=== PATIENT | female | born 1925 | race Caucasian/White ===

== ENCOUNTER 2017-07-25 12:56 | Outpatient (CLI) | payer MEDICARE | END 2017-07-25 12:57 | disposition home or self-care (01) | LOC: BICCT 12:56 | PROVIDERS: ATTEND Nurse Practitioner Family | DX: K29.70 Gastritis, unspecified, without bleeding (principal); K57.92 Diverticulitis of intestine, part unspecified, without perforation or abscess without bleeding; K63.89 Other specified diseases of intestine; Z91.09 Other allergy status, other than to drugs and biological substances | CPT/HCPCS: 74176 ==

== ENCOUNTER 2017-08-21 06:31 | Day surgery (SDC) | payer MEDICARE ==
[2017-08-20 15:50] VITALS: BMI 16.7
--- NOTE | 2017-08-20 22:25 | HP ---
SHORT STAY HISTORY AND PHYSICAL DATE OF ADMISSION: 08/21/2017 HISTORY OF PRESENT ILLNESS: This is an 89-year-old female with abdominal pain, poor appeti te, loss of weight. She had been having symptoms over the last 3 months. She has the symptom off an d on before, but the symptoms are not persistent. She had lost about 40 pounds over the last 2 month s. The patient's symptoms are difficult to explain and she does have history of depression. It is n ot very clear whether she has some ongoing pathology to explain the weight loss or she is not eating well because of depression. The patient comes for an EGD because of abdominal pain, nausea, vomiting , and weight loss. ALLERGIES: IODINE. SOCIAL HISTORY: The patient does not smoke or drink alcohol. MEDICAL ILLNESSES: 1. Hypertension. 2. Hypothyroidism. 3. Depression and anxiety. 4. Hyperlipidemia. 5. Irritable bowel syndrome. 6. Hysterectomy. 7. Cataracts. PHYSICAL EXAMINATION: GENERAL: Revealed a fragile-looking, elderly white female, who appears very comfortable. VITAL SIGNS: Her weight is 103 pounds, pulse is 73, blood pressure 110/70. HEENT: Conjunctivae are clear. CARDIOVASCULAR SYSTEM: First and second heart sounds normal. LUNGS: Clear to auscultation. ABDOMEN: Soft to palpate. No organomegaly. Abdomen is mildly tender across the upper abdomen. The re is no rebound or guarding. ADMITTING DIAGNOSES: Abdominal pain, nausea, vomiting, and weight loss. PLAN: EGD.
[2017-08-21] MEDS ORDERED: Glycopyrrolate 0.2 MG/ML 5 ML SYRINGE ONE (08:20)
--- NOTE | 2017-08-21 13:14 | OP ---
DATE OF PROCEDURE: 08/21/2017 SURGEON: Dr. Zulma Gonzalez OPERATIVE PROCEDURE: Esophagogastroduodenoscopy. PREOPERATIVE DIAGNOSIS: An 89-year-old female with vague abdominal pain, nausea and vomiting, weight loss. The patient is undergoing esophagogastroduodenoscopy. POSTOPERATIVE DIAGNOSES: 1. Small hiatus hernia. 2. Nonbleeding gastric arteriovenous malformation. 3. Otherwise, normal exam. PROCEDURE IN DETAIL: The patient was placed on her left lateral position and was given sedation by the Anesthesia Department. A Pentax video gastroscope under direct vision was passed down the oropharynx, past the gastroesophageal junction, into the stomach and subsequently into the descending duodenum. The esophageal mucosa appeared normal. The GE junction, no pathology seen. The patient had a hiatus hernia. Retroflexion failed to show any lesions in the fundus or cardia. The gastric body, no pathology seen. Over the upper gastric body, the patient was found to have nonbleeding AVM. The incisura angularis, gastric antrum, no pathology seen. The duodenal bulb and descending duodenum, no pathology. The stomach was decompressed and the scope removed. DISCHARGE PLANNING: This is an 89-year-old female who came in for an EGD because of abdominal pain, nausea and vomiting, anorexia and weight loss. The patient had EGD. The EGD was basically negative. Going over the [facility], this patient has seen Dr.Charles Llanos about 3-4 years ago. She had a colonoscopy, the colonoscopy was negative except for diffuse diverticulosis. DISCHARGE RECOMMENDATIONS: . If her symptoms persist, I will plan for CT angiogram to rule out mesenteric ischemia. [facility]
[2017-08-21] MEDS ORDERED: PROPOFOL 200 MG/20 ML VIAL ONE (16:31)
[2017-08-21] MEDS ORDERED: Lidocaine 1% PF 5 ML VIAL ONE (16:31)
== END 2017-08-21 10:40 | disposition home or self-care (01) ==
LOC: SDC 06:31
PROVIDERS: ATTEND Internal Medicine Gastroenterology
PROC: 0DJ08ZZ Inspection of Upper Intestinal Tract, Via Natural or Artificial Opening Endoscopic (ICD-10-PCS; principal; 2017-08-21)
DX: Q27.33 Arteriovenous malformation of digestive system vessel (principal); K44.9 Diaphragmatic hernia without obstruction or gangrene; R63.0 Anorexia; R63.4 Abnormal weight loss; K57.30 Diverticulosis of large intestine without perforation or abscess without bleeding; I10 Essential (primary) hypertension; E03.9 Hypothyroidism, unspecified; F41.9 Anxiety disorder, unspecified; F32.9 Major depressive disorder, single episode, unspecified; E78.5 Hyperlipidemia, unspecified; K58.9 Irritable bowel syndrome, unspecified; Z68.1 Body mass index [BMI] 19.9 or less, adult; Z79.82 Long term (current) use of aspirin; Z79.899 Other long term (current) drug therapy; Z91.013 Allergy to seafood; Z91.041 Radiographic dye allergy status; Z88.2 Allergy status to sulfonamides; Z88.8 Allergy status to other drugs, medicaments and biological substances; Z94.7 Corneal transplant status; Z90.710 Acquired absence of both cervix and uterus; Z98.890 Other specified postprocedural states
CPT/HCPCS: J2001; J2704

== ENCOUNTER 2017-08-22 10:45 | Inpatient (IN) | payer MEDICARE ==
[2017-08-22 11:29] LABS: #Basophils 0.1 thou/uL (0.0-0.2); #Monocytes 1.4 thou/uL (0.11-0.59); #Neutrophils 9.1 thou/uL (1.40-6.50); %Basophils 0.5 % (0.0-1.0); %Eosinophils 0.4 % (0.0-10.0); %Lymphocytes 15.8 % (21.0-51.0); %Monocytes 11.4 % (0.0-10.0); Hemoglobin 8.8 g/dL (12.0-16.0); Mean Corpuscular HGB CONC 31.4 g/dL (32.0-36.0); Mean Corpuscular Hemoglobin 26.5 pg (27.0-31.0); Mean Corpuscular Volume 84.2 fl (81.0-99.0); Platelet Count 519 thou/uL (130-400); RBC Distribution Width 13.4 % (11.5-14.5); Red Blood Cell (RBC) Count 3.32 mill/uL (4.20-5.40); White Blood Cell (WBC) Count 12.6 thou/uL (4.8-10.8)
[2017-08-22 11:51] LABS: ALT (SGPT) Less than 7 U/L (8-55); AST (SGOT) 10 U/L (5-34); Alkaline Phosphatase 52 U/L (40-150); Anion Gap 9 mmol/L (10-20); BUN (Urea Nitrogen) 19 mg/dL (9.8-20.1); Bilirubin, Total 0.4 mg/dL (0.2-1.2); Calc. Creatinine Clearance 0 mL/min (70-130); Calcium 8.5 mg/dL (7.8-10.44); Carbon Dioxide 27 mmol/L (23-31); Chloride 102 mmol/L (98-107); Estimated GFR-MDRD 48; Globulin 3.9 g/dL (2.4-3.5); Glucose 140 mg/dL (83-110); Magnesium 1.8 mg/dL (1.6-2.6); Potassium 3.2 mmol/L (3.5-5.1); Protein, Total 6.9 g/dL (6.0-8.3); Sodium 135 mmol/L (136-145)
[2017-08-22 11:55] LABS: CKMB 0.5 ng/mL (0-6.6); Troponin I Less than 0.010 ng/mL (< 0.028)
--- NOTE | 2017-08-22 11:56 | CT ---
NONCONTRAST HEAD CT: Date: 08/22/17 HISTORY: Syncope. COMPARISON: None. TECHNIQUE: A noncontrast head CT is performed from the skull base to the skull vertex. FINDINGS: No parenchymal hemorrhage or extra-axial hematoma. No midline shift. Basilar cisterns are patent. Age -appropriate atrophy. Cortical perry-white matter differentiation is preserved. Ventricles and sulci a re patent and symmetric. White matter hypodensities due to chronic small vessel ischemic changes are noted. Hypoattenuation of the anterior limb of both internal capsules is also identified. Calvarium i s intact. Adequate aeration of the sinuses and mastoid air cells. Cavernous carotid atherosclerosis i s noted. IMPRESSION: 1. Age-appropriate atrophy. 2. Chronic small vessel ischemic changes of white matter. POS: OFF
[2017-08-22] MEDS ORDERED: Ondansetron ODT 4 MG TAB SL PRN (13:57)
[2017-08-22] MEDS ORDERED: Acetaminophen 325 MG TAB PO PRN (13:57)
[2017-08-22] MEDS ORDERED: Ondansetron HCl/PF 4 MG/2 ML Vial IVP PRN (13:57)
[2017-08-22] MEDS ORDERED: Guaifenesin DM 100-10/5 ML UDCUP PO PRN (15:19)
--- NOTE | 2017-08-22 15:49 | HP ---
REASON FOR ADMISSION: Transient ischemic attack with left lower extremity weakness. HISTORY OF PRESENT ILLNESS: The patient gives history of waking up with left leg feeling numb. She could not move her left lower extremity without the help of her hands pulling it up, this happened around 8 in the morning. She was supposed to meet her children at a restaurant for breakfast as she did not turn up, they called her and her daughter went to pick her up. She in fact was leaning onto her when she was trying to get into the car, but they managed to make her eat breakfast. As this was not getting better, the patient was finally brought to emergency room. The patient states she normally has diarrhea around 2-3 times a day; yesterday, she had nearly 6-7 times and got wiped out from it. She also had upper endoscopy done yesterday for which she was n.p.o. She has been getting workup for her diarrhea, which has been chronically there from last [address] Gonzalez's office. She also mentions she has hemorrhoids and has been bleeding due to it and also has issues sitting up and has to use special positions for the hemorrhoids not to hurt her. This has led to pinching up nerves with tingling and numbness in the lower extremities as well. PAST MEDICAL/SURGICAL HISTORY: Has had upper endoscopy done yesterday which shows essentially within normal limits, prior colonoscopy done 4 years ago. The patient knows she is borderline anemic, hysterectomy, has had a stress test done 5 years back. She also claims that she has some valve issue which will not kill her and follows up with Dr. Sheets for the same, dyslipidemia, and diverticulosis. CURRENT MEDICATIONS: The patient is on duloxetine 20 mg daily, Crestor 20 mg p.o. at bedtime, Cardizem-CD 180 mg p.o. daily, Bentyl p.r.n. twice daily, aspirin 81 mg p.o. daily, CoQ10 100 mg p.o. daily, Superior Thyroid 15 mg p.o. daily, Protonix 40 mg p.o. daily. ALLERGIES: IODINE, SULFA, OMNICEF. PERSONAL HISTORY: Does not abuse alcohol or drugs. No history of smoking. She lives alone. FAMILY HISTORY: Mother at the age of 92 from old age. Father of aneurysm and its complications at the age of 59 years. REVIEW OF SYSTEMS: The following complete review of systems was negative, unless otherwise mentioned in the HPI or below: Constitutional: Weight loss or gain, ability to conduct usual activities. Skin: Rash, itching. Eyes: Double vision, pain. ENT/Mouth: Nose bleeding, neck stiffness, pain, tenderness. Cardiovascular: Palpitations, dyspnea on exertion, orthopnea. Respiratory: Shortness of breath, wheezing, cough, hemoptysis, fever or night sweats. Gastrointestinal: Poor appetite, abdominal pain, heartburn, nausea, vomiting, constipation, or diarrhea. Genitourinary: Urgency, frequency, dysuria, nocturia. Musculoskeletal: Pain, swelling. Neurologic/Psychiatric: Anxiety, depression. Allergy/Immunologic: Skin rash, bleeding tendency. PHYSICAL EXAMINATION: GENERAL: The patient is an 89-year-old female who is currently not in any acute distress. VITAL SIGNS: Blood pressure 100/58 on arrival, pulse 93 per minute, respiratory rate 16 per minute, temperature 97.8 degrees Fahrenheit, saturating 96% on room air. NECK: Supple, no elevated JVD. HEENT: Eyes: Extraocular muscles intact. Pupils reacting to light. Oral cavity: Mucous membranes are dry. No exudates or congestion. CARDIOVASCULAR: S1, S2 heard. Regular rhythm. RESPIRATORY: Air entry 1+ bilaterally. No rales or rhonchi. ABDOMEN: Soft, bowel sounds heard. No tenderness, rigidity or guarding. EXTREMITIES: No peripheral edema or calf tenderness. VASCULAR SYSTEM: Peripheral pulses 1+ bilateral. No ischemic ulcerations or gangrene. CENTRAL NERVOUS SYSTEM: The patient is alert, awake, and oriented well. Cranial nerves are grossly intact. Motor system strength is 5/5 in right upper and lower extremity and left upper extremity. It is 4-5/5 in left lower extremity with a slight tinge of weakness. Please note patient is a right- handed person. Reflexes are 2+. Babinski is downgoing. Gait was not tested. PSYCHIATRIC: The patient's mood is a bit anxious, otherwise no hallucinations or delusions. LABORATORY AND X-RAY FINDINGS: EKG done shows normal sinus rhythm at 88 beats per minute. No signs of LVH seen. White count of 12, H&H 8.8 and 27.9, platelet count 519, MCV is 84 with 72% neutrophils. Potassium 3.2, serum bicarbonate 27, BUN 19, creatinine 1.0, glucose 140. AST, ALT, and alkaline phosphatase within normal limits. Albumin is 3.0, globulin is 3.9, total protein is 6.9. First set of cardiac enzymes are negative. CT brain shows age appropriate atrophy, chronic small vessel ischemic change, no acute infarct or bleed. CLINICAL IMPRESSION AND PLAN: The patient will be under observation for transient ischemic attack with left lower extremity weakness, which is currently resolving. She also appears to be dehydrated. She has chronic diarrhea and had worsening of the same and was also n.p.o. for EGD in the morning yesterday. She will be gently hydrated with normal saline at 60 mL per hour. We will also replace her potassium. I will continue her aspirin, Cardizem-CD 10, CoQ10, Crestor, Protonix, Superior thyroid as before. If patient were to have a CVA on imaging, then she will be switched to Plavix. We will obtain an echo with 2D Doppler and ultrasound carotids as well. A complete stroke workup will be done as well. We will consult Neurology if there are signs of CVA on the MRI. I have discussed code status with the patient and she would like to be a DNR. Her daughter was also a witness to this at bedside. [facility]
--- NOTE | 2017-08-22 16:25 | ULT ---
DUPLEX SONOGRAM CAROTID BILATERAL: 08/22/17 HISTORY: TIA. Vascular disease. FINDINGS: RIGHT: Mild plaque is present. Color and spectral doppler evaluation, peak systolic velocity of 113 cm/s, an d IC to CC ratio of 1.2 suggests no hemodynamically significant stenosis within the extracranial righ t ICA. Antegrade flow is present within the vertebral artery. LEFT: Scattered plaque is apparent. Color and spectral doppler evaluation, peak systolic velocity of 114 cm /s and IC to CC ratio of 0.9 suggests no hemodynamically significant stenosis within the extracranial left ICA. Antegrade flow is present within the vertebral artery. IMPRESSION: Atherosclerosis. There is no sonographic evidence of significant extracranial ICA stenosis. POS: [facility]
--- NOTE | 2017-08-22 16:56 | MRI ---
MRI OF BRAIN WITHOUT CONTRAST: 08/22/17 HISTORY: TIA. FINDINGS: Correlation is made with the CT scan from earlier today. There is a 1 cm focal area of restricted diffusion in the medial aspect of the right precentral gyrus consistent with acute infarction. Multiple foci of T2 prolongation is seen in the periventricular white matter consistent with chronic small vessel ischemic disease. The ventricular size is appropriate and the basilar cisterns patent. T he visualized paranasal sinus and mastoid air cells are well aerated. IMPRESSION: Small acute infarction in the medial aspect of the right precentral gyrus. POS: [facility]
[2017-08-22] MEDS: Potassium Chloride 20 MEQ TAB PO SCH ×2 (16:58→21:19)
[2017-08-22] MEDS: Sodium Chloride 0.9% 1,000 ML IV SCH (17:04)
[2017-08-22] MEDS: Rosuvastatin 20 MG TAB PO SCH (20:34)
[2017-08-22] MEDS: Acetaminophen 325 MG TAB PO PRN (20:34)
[2017-08-22] MEDS: Famotidine 20 MG TAB PO SCH (20:35)
[2017-08-23] MEDS: Acetaminophen 325 MG TAB PO PRN ×2 (00:12→20:26)
[2017-08-23] MEDS: metroNIDAZOLE 500 MG in Premix Bag 1 BAG IVPB SCH ×3 (01:16→18:23)
[2017-08-23] MEDS: Potassium Chloride 20 MEQ TAB PO SCH (03:52)
[2017-08-23 05:31] LABS: #Lymphocytes 1.6 thou/uL (1.20-3.40); #Monocytes 1.7 thou/uL (0.11-0.59); #Neutrophils 8.4 thou/uL (1.40-6.50); %Basophils 0.2 % (0.0-1.0); %Eosinophils 0.3 % (0.0-10.0); %Monocytes 14.2 % (0.0-10.0); %Neutrophils 71.4 % (42.0-75.0); Mean Corpuscular HGB CONC 30.9 g/dL (32.0-36.0); Mean Corpuscular Hemoglobin 26.1 pg (27.0-31.0); Mean Corpuscular Volume 84.6 fl (81.0-99.0); Mean Platelet Volume 6.2 fL (7.4-10.4); Platelet Count 498 thou/uL (130-400); RBC Distribution Width 13.4 % (11.5-14.5); Red Blood Cell (RBC) Count 3.04 mill/uL (4.20-5.40); White Blood Cell (WBC) Count 11.8 thou/uL (4.8-10.8)
[2017-08-23 06:24] LABS: Anion Gap 11 mmol/L (10-20); BUN (Urea Nitrogen) 14 mg/dL (9.8-20.1); Calc. Creatinine Clearance 36 mL/min (70-130); Carbon Dioxide 20 mmol/L (23-31); Cardiac Risk 2.5 (Less than 4.5); Chloride 108 mmol/L (98-107); Cholesterol 70 mg/dl (< 200 Desired); Estimated GFR-MDRD 70; Glucose 104 mg/dL (83-110); HDL Cholesterol 28 mg/dL (>60 Neg Risk); LDL Cholesterol, Calculated 31 mg/dL; Potassium 4.6 mmol/L (3.5-5.1); Sodium 134 mmol/L (136-145); Triglycerides 56 mg/dL (Less than 150)
[2017-08-23] MEDS: Aspirin 81 mg Enteric Coated Tablet PO SCH (08:31)
[2017-08-23] MEDS: Enoxaparin Sodium 40 MG/0.4 ML SYRINGE SC SCH (08:33)
[2017-08-23] MEDS: Diphenoxylate HCl/Atropine Tablet PO SCH (08:33)
[2017-08-23] MEDS: Famotidine 20 MG TAB PO SCH (08:34)
[2017-08-23] MEDS: Thyroid 30 MG TAB PO SCH (08:35)
[2017-08-23] MEDS: Ubidecarenone 50 MG CAP PO SCH (08:38)
--- NOTE | 2017-08-23 11:49 | PDOC.PN ---
- Subjective Encounter Start Date: 08/23/17 Encounter Start Time: 09:00 Subjective: awake, no new complaints -: still has left leg parasthesias and feels weak in Left leg - Objective Resuscitation Status: Resuscitation Status DNR:Do Not Resuscitate MAR Reviewed: Yes Vital Signs & Weight: Vital Signs (12 hours) Temp Pulse Pulse Pulse Resp BP BP 08/23/17 09:30 92 92 121/55 L 127/58 L 08/23/17 08:20 98.7 F 77 18 08/23/17 07:48 98.7 F 77 18 08/23/17 07:33 83 123/56 L 127/60 08/23/17 03:28 98.2 F 80 20 BP Pulse Ox 08/23/17 09:30 08/23/17 08:20 08/23/17 07:48 103/68 94 L 08/23/17 07:33 08/23/17 03:28 100/54 L 93 L Weight Admit Weight 103 lb 1.6 oz Weight 103 lb 1.6 oz I&O: 08/22/17 08/23/17 08/24/17 06:59 06:59 06:59 Intake Total 790 Balance 790 Result Diagrams: 08/23/17 04:49 08/23/17 04:49 Phys Exam - Physical Examination HEENT: PERRLA, moist MMs Neck: no JVD, supple Respiratory: no wheezing, no rales Cardiovascular: RRR, no significant murmur Gastrointestinal: soft, non-tender, positive bowel sounds Musculoskeletal: no edema, pulses present Neurological: moves all 4 limbs Psychiatric: normal affect, A&O x 3 Dx/Plan (1) Acute CVA (cerebrovascular accident) Code(s): I63.9 - CEREBRAL INFARCTION, UNSPECIFIED Status: Acute Comment: with left sided weakness (2) HTN (hypertension) Code(s): I10 - ESSENTIAL (PRIMARY) HYPERTENSION Status: Chronic Qualifiers: Hypertension type: essential hypertension Qualified Code(s): I10 - Essential (primary) hypertension (3) Anemia Code(s): D64.9 - ANEMIA, UNSPECIFIED Status: Chronic Qualifiers: Anemia type: unspecified type Qualified Code(s): D64.9 - Anemia, unspecified (4) Chronic diarrhea Code(s): K52.9 - NONINFECTIVE GASTROENTERITIS AND COLITIS, UNSPECIFIED Status : Chronic (5) Dyslipidemia Code(s): E78.5 - HYPERLIPIDEMIA, UNSPECIFIED Status: Chronic (6) Hypothyroidism Code(s): E03.9 - HYPOTHYROIDISM, UNSPECIFIED Status: Chronic Qualifiers: Hypothyroidism type: unspecified Qualified Code(s): E03.9 - Hypothyroidism , unspecified - Plan MRI shows ac cva in left precentral gyrus -: neuro consult, change status to inpt -: stool w/u so far is -ve for inf causes -: her diarrheal episodes have worsoned overnight, GI consult -: to amb as tolerated * . Review of Systems - Medications/Allergies Allergies/Adverse Reactions: Allergies Allergy/AdvReac Type Severity Reaction Status Date / Time iodine Allergy Intermediate Verified 08/20/17 15:51 shellfish derived Allergy Intermediate Verified 08/20/17 15:51 simvastatin Allergy Mild Verified 08/20/17 15:51 sulfamethoxazole Allergy Mild Verified 08/20/17 15:51 [From Bactrim] trimethoprim [From Bactrim] Allergy Mild Verified 08/20/17 15:51 Medications: Current Medications Acetaminophen (Tylenol) 650 mg PO Q4H PRN PRN Reason: Headache/Fever or Pain Last Admin: 08/23/17 00:12 Dose: 650 mg Aspirin (Ecotrin) 81 mg PO DAILY [facility] Last Admin: 08/23/17 08:31 Dose: 81 mg Coenzyme Q10 (Coenzyme Q10) 100 mg PO DAILY [facility] Last Admin: 08/23/17 08:38 Dose: 100 mg Diltiazem HCl (Cardizem Cd) 180 mg PO DAILY [facility] Last Admin: 08/23/17 08:32 Dose: 180 mg Diphenoxylate HCl/Atropine (Lomotil) 1 tab PO DAILY [facility] Last Admin: 08/23/17 08:33 Dose: 1 tab Duloxetine HCl (Cymbalta) 20 mg PO HS [facility] Last Admin: 08/22/17 20:35 Dose: 20 mg Enoxaparin Sodium (Lovenox) 40 mg SC 0900 [facility] Last Admin: 08/23/17 08:33 Dose: 40 mg Guaifenesin/Dextromethorphan (Robitussin Dm) 15 ml PO Q4H PRN PRN Reason: Cough Sodium Chloride (Normal Saline 0.9%) 1,000 mls @ 60 mls/hr IV .[id number] [facility] Last Admin: 08/22/17 17:04 Dose: 1,000 mls Ciprofloxacin/Dextrose 400 mg/ (Device) 200 mls @ 200 mls/hr IVPB 1200,2359 [facility] Last Admin: 08/23/17 00:11 Dose: 200 mls Metronidazole 500 mg/ Device 100 mls @ 100 mls/hr IVPB 0100,0900,1700 [facility] Last Admin: 08/23/17 08:42 Dose: 100 mls Pantoprazole Sodium (Protonix) 40 mg PO DAILY [facility] Last Admin: 08/23/17 08:34 Dose: 40 mg Rosuvastatin Calcium (Crestor) 20 mg PO HS [facility] Last Admin: 08/22/17 20:34 Dose: 20 mg Thyroid ([place] Thyroid) 15 mg PO DAILY [facility] Last Admin: 08/23/17 08:35 Dose: 15 mg
[2017-08-23] MEDS: Sodium Chloride 0.9% 1,000 ML IV SCH (12:34)
--- NOTE | 2017-08-23 13:41 | CON ---
DATE OF CONSULTATION: 08/23/2017 CHIEF COMPLAINT: Leg weakness. HISTORY OF PRESENT ILLNESS: The patient is admitted currently for gastrointestinal symptoms and dave ent was unable to tell me how long her leg was weak, but family informs me that patient developed acu te left leg weakness and patient is mainly complaining of left calf muscle pain and according to the medical chart as well she had left lower extremity weakness starting at 8:00 a.m. and at this time sh e had resolved and she was brought to the ER on 250 and she has been having diarrhea for the last sev eral weeks and she has been seen on various medications for this chronic diarrhea and patient also webb s hemorrhoids and is bleeding. PREVIOUS MEDICAL HISTORY: Gastrointestinal problems with longstanding diarrhea and dyslipidemia, div erticulosis, anemia. PREVIOUS SURGICAL HISTORY: Hysterectomy and no other surgeries. She did have endoscopies and colono scopies in the past. HOME MEDICATIONS: Include duloxetine, Crestor, Cardizem, Bentyl, aspirin, Coq10, Redig thyroid and Protonix. ALLERGIES: She is allergic to IODINE, SULFA, and OMNICEF. 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 FAMILY HISTORY: Positive for stroke in her mother. Father had aneurysm. REVIEW OF SYSTEMS: PULMONARY: Normal. CARDIAC: Normal. GASTROINTESTINAL: Positive for longstand ing diarrhea. GENITOURINARY: Normal. NEUROLOGICAL: Positive for left lower extremity weakness. O PHTHALMOLOGICAL: Normal. DERMATOLOGICAL: Normal. LABORATORY DATA AND IMAGING DATA: White count 11.8, hemoglobin 8, hematocrit 25.7, platelets 498. S odium 134, potassium 4.6, chloride 108, bicarbonate 20, anion gap 11, BUN 14, creatinine 0.78, trigly cerides 56, cholesterol 70. Imaging results, MRI scan of the brain was performed and it showed small acute infarct in the medial aspect of right precentral gyrus and carotid Dopplers, atherosclerosis. There is no sonographic evidence of extracranial ICA stenosis. PHYSICAL EXAMINATION: VITAL SIGNS: Blood pressure 131/58, temperature 100.1, pulse 92, respiratory rate 16, oxygen saturat ions 94%. GENERAL APPEARANCE: Thin built, frail lady who is in the bed. CHEST: Clear vesicular breathing. CARDIOVASCULAR: S1 and S2 heard. No murmurs. Carotids are clear. ABDOMEN: Soft, nontender, no organomegaly noted. NEUROLOGIC: Higher intellectual functions are normal. Cranial nerves II-XII normal, but she has sli ghtly decreased hearing. Normal extraocular movements. Normal fundus examination. Normal sensation of face bilaterally. Hearing is slightly decreased on the left side and tongue midline. No atrophy noted. Normal elevation of palate. MOTOR: Bulk normal, tone normal, strength 5/5 in upper extremities and lower extremity strength was also normal at 5/5. Muscle groups tested, iliopsoas, hamstrings, quadriceps, ankle dorsiflexion, rodger ntarflexion, deltoids, biceps, triceps, wrist extension/flexion, finger extension and flexion bilater ally. Deep tendon reflexes 1+ throughout in biceps, brachioradialis, knee jerks and ankle jerks bila terally. Gait not tested. SENSORY: Normal to touch, pinprick, proprioception and vibration bilaterally in upper and lower extr emities. CEREBELLAR: Normal [id number] heel to starks. Gait not tested. IMPRESSION: Patient is an 89-year-old lady with longstanding history of having gastrointestinal prob lems and diarrhea for this past year and she has been having more diarrhea recently and has been foun d to have left lower extremity weakness. Her weakness has resolved. MRI did show small ischemic dany nt in the medial aspect of right precentral gyrus which corresponds to the left lower extremity weakn ess. Clinical diagnosis is most consistent with acute CVA in the setting of likely dehydration and p oor general condition due to diarrhea. RECOMMENDATIONS: 1. Please continue with aspirin. 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 2. I will check on her echocardiogram and rest of the stroke workup. 3. Please correct her hemoglobin, so we can improve cerebral perfusion. 4. I will follow the patient with you through this hospital stay.
[2017-08-23] MEDS: Rosuvastatin 20 MG TAB PO SCH (20:26)
[2017-08-24] MEDS: metroNIDAZOLE 500 MG in Premix Bag 1 BAG IVPB SCH ×3 (00:28→16:57)
[2017-08-24] MEDS: Sodium Chloride 0.9% 1,000 ML IV SCH ×2 (01:57→09:24)
[2017-08-24] MEDS: Enoxaparin Sodium 40 MG/0.4 ML SYRINGE SC SCH (09:21)
[2017-08-24] MEDS: Ubidecarenone 50 MG CAP PO SCH (09:22)
[2017-08-24] MEDS: Thyroid 30 MG TAB PO SCH (09:22)
[2017-08-24] MEDS: Diphenoxylate HCl/Atropine Tablet PO SCH (09:23)
[2017-08-24] MEDS: Aspirin 81 mg Enteric Coated Tablet PO SCH (09:23)
--- NOTE | 2017-08-24 10:14 | PDOC.PN ---
- Subjective Encounter Start Date: 08/24/17 Encounter Start Time: 09:00 Subjective: diarrhea better overnight, slept better -: no new weakness, is amb with PT - Objective Resuscitation Status: Resuscitation Status DNR:Do Not Resuscitate MAR Reviewed: Yes Vital Signs & Weight: Vital Signs (12 hours) Temp Pulse Resp BP Pulse Ox 08/24/17 07:18 98.6 F 85 18 106/53 L 99 08/24/17 03:54 98.1 F 71 16 111/50 L 95 08/24/17 00:20 98.9 F 74 16 133/70 94 L Weight Admit Weight 103 lb 1.6 oz Weight 102 lb 9.6 oz I&O: 08/23/17 08/24/17 08/25/17 06:59 06:59 06:59 Intake Total 790 5745 Output Total 950 Balance 790 4795 Result Diagrams: 08/23/17 04:49 08/23/17 04:49 Phys Exam - Physical Examination HEENT: PERRLA, moist MMs Neck: no JVD, supple Respiratory: no wheezing, no rales Cardiovascular: RRR, no significant murmur Gastrointestinal: soft, non-tender, positive bowel sounds Musculoskeletal: no edema, pulses present Neurological: non-focal, moves all 4 limbs Psychiatric: A&O x 3 Dx/Plan (1) Acute CVA (cerebrovascular accident) Code(s): I63.9 - CEREBRAL INFARCTION, UNSPECIFIED Status: Acute Comment: with left sided weakness (2) HTN (hypertension) Code(s): I10 - ESSENTIAL (PRIMARY) HYPERTENSION Status: Chronic Qualifiers: Hypertension type: essential hypertension Qualified Code(s): I10 - Essential (primary) hypertension (3) Anemia Code(s): D64.9 - ANEMIA, UNSPECIFIED Status: Chronic Qualifiers: Anemia type: unspecified type Qualified Code(s): D64.9 - Anemia, unspecified (4) Chronic diarrhea Code(s): K52.9 - NONINFECTIVE GASTROENTERITIS AND COLITIS, UNSPECIFIED Status : Chronic (5) Dyslipidemia Code(s): E78.5 - HYPERLIPIDEMIA, UNSPECIFIED Status: Chronic (6) Hypothyroidism Code(s): E03.9 - HYPOTHYROIDISM, UNSPECIFIED Status: Chronic Qualifiers: Hypothyroidism type: unspecified Qualified Code(s): E03.9 - Hypothyroidism , unspecified - Plan was placed on cipro and flagyl last night, stool studies -ve for inf -: is on asp, statins -: to mobilize as tolerated -: dc plan in am if stable, ?rehab -: will order CTA abd to r/o mesenteric ischemia, needs premed-iodine allergy * . Review of Systems - Medications/Allergies Allergies/Adverse Reactions: Allergies Allergy/AdvReac Type Severity Reaction Status Date / Time iodine Allergy Intermediate Verified 08/20/17 15:51 shellfish derived Allergy Intermediate Verified 08/20/17 15:51 simvastatin Allergy Mild Verified 08/20/17 15:51 sulfamethoxazole Allergy Mild Verified 08/20/17 15:51 [From Bactrim] trimethoprim [From Bactrim] Allergy Mild Verified 08/20/17 15:51 Medications: Current Medications Acetaminophen (Tylenol) 650 mg PO Q4H PRN PRN Reason: Headache/Fever or Pain Last Admin: 08/23/17 20:26 Dose: 650 mg Aspirin (Ecotrin) 81 mg PO DAILY [facility] Last Admin: 08/24/17 09:23 Dose: 81 mg Coenzyme Q10 (Coenzyme Q10) 100 mg PO DAILY [facility] Last Admin: 08/24/17 09:22 Dose: 100 mg Diltiazem HCl (Cardizem Cd) 180 mg PO DAILY [facility] Last Admin: 08/24/17 09:23 Dose: 180 mg Diphenoxylate HCl/Atropine (Lomotil) 1 tab PO DAILY [facility] Last Admin: 08/24/17 09:23 Dose: 1 tab Duloxetine HCl (Cymbalta) 20 mg PO HS [facility] Last Admin: 08/23/17 20:26 Dose: 20 mg Enoxaparin Sodium (Lovenox) 40 mg SC 0900 [facility] Last Admin: 08/24/17 09:21 Dose: 40 mg Guaifenesin/Dextromethorphan (Robitussin Dm) 15 ml PO Q4H PRN PRN Reason: Cough Sodium Chloride (Normal Saline 0.9%) 1,000 mls @ 60 mls/hr IV .[id number] [facility] Last Admin: 08/24/17 09:24 Dose: 1,000 mls Ciprofloxacin/Dextrose 400 mg/ (Device) 200 mls @ 200 mls/hr IVPB 1200,2359 [facility] Last Admin: 08/24/17 00:28 Dose: 200 mls Metronidazole 500 mg/ Device 100 mls @ 100 mls/hr IVPB 0100,0900,1700 [facility] Last Admin: 08/24/17 09:23 Dose: 100 mls Pantoprazole Sodium (Protonix) 40 mg PO DAILY [facility] Last Admin: 08/24/17 09:23 Dose: 40 mg Rosuvastatin Calcium (Crestor) 20 mg PO HS [facility] Last Admin: 08/23/17 20:26 Dose: 20 mg Thyroid ([place] Thyroid) 15 mg PO DAILY [facility] Last Admin: 08/24/17 09:22 Dose: 15 mg
--- NOTE | 2017-08-24 14:04 | PRG ---
DATE OF SERVICE: 08/24/2017 CHIEF COMPLAINT: Left leg weakness. INTERVAL HISTORY: Since yesterday, the patient has been able to ambulate with help from PT. The pat iealbert reports she has some improvement in the leg weakness. LABORATORY: No new labs available yet for today. OBJECTIVE: VITAL SIGNS: The patient's blood pressure was 107/49, temperature 98.2, pulse 80, respiratory rate 1 8, oxygen saturation 96. NEUROLOGIC: Higher intellectual function is normal. Cranial nerves: Normal extraocular movements. No facial asymmetry, normal sensation of face bilaterally. Motor: Bulk, normal tone, normal streng th, 5-/5 in upper extremities bilaterally. Right lower extremity was also 5-/5, left lower extremity 4+/5 proximal and 5/5 distal. IMPRESSION: The patient with right precentral gyrus ischemic infarct with resultant left lower extre mity weakness. She is stable and doing well at this time. PLAN: I will check on her echocardiogram when available and I will follow up with you during this ho spitalization.
[2017-08-24] MEDS ORDERED: predniSONE 50 MG TAB PO SCH (20:00)
[2017-08-24] MEDS: Rosuvastatin 20 MG TAB PO SCH (20:27)
[2017-08-24] MEDS: Acetaminophen 325 MG TAB PO PRN (20:28)
[2017-08-25] MEDS: metroNIDAZOLE 500 MG in Premix Bag 1 BAG IVPB SCH ×3 (00:34→17:48)
[2017-08-25] MEDS ORDERED: predniSONE 50 MG TAB PO SCH ×2 (02:00→08:00)
[2017-08-25] MEDS ORDERED: diphenhydrAMINE 50 MG CAP PO SCH (08:00)
[2017-08-25] MEDS: Aspirin 81 mg Enteric Coated Tablet PO SCH (09:49)
[2017-08-25] MEDS: Diphenoxylate HCl/Atropine Tablet PO SCH (09:49)
[2017-08-25] MEDS: Enoxaparin Sodium 40 MG/0.4 ML SYRINGE SC SCH (09:49)
[2017-08-25] MEDS: Thyroid 30 MG TAB PO SCH (09:51)
[2017-08-25] MEDS: Ubidecarenone 50 MG CAP PO SCH (09:52)
[2017-08-25] MEDS: Sodium Chloride 0.9% 1,000 ML IV SCH (09:59)
--- NOTE | 2017-08-25 10:40 | PDOC.PN ---
- Subjective Encounter Start Date: 08/25/17 Encounter Start Time: 10:00 Subjective: slept well, diarrhea is better -: no abd pain, left leg feels normal this am per patient, no parasthesias - Objective Resuscitation Status: Resuscitation Status DNR:Do Not Resuscitate MAR Reviewed: Yes Vital Signs & Weight: Vital Signs (12 hours) Temp Pulse Resp BP BP Pulse Ox 08/25/17 08:00 98 F 74 18 120/59 L 95 08/25/17 07:35 98.6 F 71 18 08/25/17 04:40 98.6 F 71 18 107/59 L 96 08/25/17 00:10 98.3 F 75 18 103/58 L 95 Weight Admit Weight 103 lb 1.6 oz Weight 102 lb 1.6 oz I&O: 08/24/17 08/25/17 08/26/17 06:59 06:59 06:59 Intake Total 5745 2920 Output Total 950 950 Balance 4795 1970 Result Diagrams: 08/23/17 04:49 08/23/17 04:49 Phys Exam - Physical Examination HEENT: PERRLA, moist MMs Neck: no JVD, supple Respiratory: no wheezing, no rales Cardiovascular: RRR, no significant murmur Gastrointestinal: soft, non-tender, no distention, positive bowel sounds Musculoskeletal: no edema, pulses present Neurological: non-focal, moves all 4 limbs Psychiatric: A&O x 3 Dx/Plan (1) Acute CVA (cerebrovascular accident) Code(s): I63.9 - CEREBRAL INFARCTION, UNSPECIFIED Status: Acute Comment: with left sided weakness (2) HTN (hypertension) Code(s): I10 - ESSENTIAL (PRIMARY) HYPERTENSION Status: Chronic Qualifiers: Hypertension type: essential hypertension Qualified Code(s): I10 - Essential (primary) hypertension (3) Anemia Code(s): D64.9 - ANEMIA, UNSPECIFIED Status: Chronic Qualifiers: Anemia type: unspecified type Qualified Code(s): D64.9 - Anemia, unspecified (4) Chronic diarrhea Code(s): K52.9 - NONINFECTIVE GASTROENTERITIS AND COLITIS, UNSPECIFIED Status : Chronic (5) Dyslipidemia Code(s): E78.5 - HYPERLIPIDEMIA, UNSPECIFIED Status: Chronic (6) Hypothyroidism Code(s): E03.9 - HYPOTHYROIDISM, UNSPECIFIED Status: Chronic Qualifiers: Hypothyroidism type: unspecified Qualified Code(s): E03.9 - Hypothyroidism , unspecified - Plan is responding to antibiotics for diarrhea although stool screen has been -v -: cta abd to r/o mesenteric ischemia, got premedicated -: is on asp, crestor -: cipro, flagyl for diarrhea -: await rehab/snf/HH options in am * . Review of Systems - Medications/Allergies Allergies/Adverse Reactions: Allergies Allergy/AdvReac Type Severity Reaction Status Date / Time iodine Allergy Intermediate Verified 08/20/17 15:51 shellfish derived Allergy Intermediate Verified 08/20/17 15:51 simvastatin Allergy Mild Verified 08/20/17 15:51 sulfamethoxazole Allergy Mild Verified 08/20/17 15:51 [From Bactrim] trimethoprim [From Bactrim] Allergy Mild Verified 08/20/17 15:51 Medications: Current Medications Acetaminophen (Tylenol) 650 mg PO Q4H PRN PRN Reason: Headache/Fever or Pain Last Admin: 08/24/17 20:28 Dose: 650 mg Aspirin (Ecotrin) 81 mg PO DAILY [facility] Last Admin: 08/25/17 09:49 Dose: 81 mg Coenzyme Q10 (Coenzyme Q10) 100 mg PO DAILY [facility] Last Admin: 08/25/17 09:52 Dose: 100 mg Diltiazem HCl (Cardizem Cd) 180 mg PO DAILY [facility] Last Admin: 08/25/17 09:49 Dose: 180 mg Diphenoxylate HCl/Atropine (Lomotil) 1 tab PO DAILY [facility] Last Admin: 08/25/17 09:49 Dose: 1 tab Duloxetine HCl (Cymbalta) 20 mg PO HS [facility] Last Admin: 08/24/17 20:27 Dose: 20 mg Enoxaparin Sodium (Lovenox) 40 mg SC 0900 [facility] Last Admin: 08/25/17 09:49 Dose: 40 mg Guaifenesin/Dextromethorphan (Robitussin Dm) 15 ml PO Q4H PRN PRN Reason: Cough Sodium Chloride (Normal Saline 0.9%) 1,000 mls @ 60 mls/hr IV .[id number] [facility] Last Admin: 08/25/17 09:59 Dose: 1,000 mls Ciprofloxacin/Dextrose 400 mg/ (Device) 200 mls @ 200 mls/hr IVPB 1200,2359 [facility] Last Admin: 08/25/17 00:33 Dose: 200 mls Metronidazole 500 mg/ Device 100 mls @ 100 mls/hr IVPB 0100,0900,1700 [facility] Last Admin: 08/25/17 09:50 Dose: 100 mls Pantoprazole Sodium (Protonix) 40 mg PO DAILY [facility] Last Admin: 08/25/17 09:51 Dose: 40 mg Rosuvastatin Calcium (Crestor) 20 mg PO HS [facility] Last Admin: 08/24/17 20:27 Dose: 20 mg Thyroid ([place] Thyroid) 15 mg PO DAILY [facility] Last Admin: 08/25/17 09:51 Dose: 15 mg
--- NOTE | 2017-08-25 10:43 | CT ---
CTA OF THE ABDOMEN AND PELVISCTA OF THE ABDOMEN AND PELVIS WITH CONTRAST: HISTORY: Evaluate for mesenteric ischemia. Abdominal pain for weeks. TECHNIQUE: Multiple contiguous axial images were obtained in a CTA of the abdomen and pelvis with contrast. Thr ee-D sagittal and coronal MIP reformats were performed. FINDINGS: There are hypodensities in the bilateral kidneys which likely represent cysts. The liver, gallbladde r, adrenal glands, spleen, and pancreas are unremarkable. No free air, free fluid, or stranding campbell ges are seen in the abdomen or pelvis. There is scattered diverticula in the colon. The small bowel is unremarkable. No abdominal or pelvi c lymphadenopathy is seen. Degenerative changes are seen in the spine. There is atelectasis in both lung bases with trace bilat eral pleural effusions. Diffuse soft tissue anasarca is seen. Mild to moderate diffuse atherosclerotic disease is seen within the aorta. The celiac trunk, SMA, an d KIMBERLY are patent. Minimal atherosclerotic disease is seen at the ostium of the celiac trunk and SMA. Two renal arteries are seen on the right and 1 renal artery is seen on the left. Mild atherosclero tic disease is seen in the proximal left renal artery. The aorta bifurcates into mildly diseased common iliac arteries. The internal iliac arteries and ext ernal iliac arteries show no significant atherosclerotic disease. IMPRESSION: 1. No evidence of mesenteric artery ischemia. 2. Bilateral renal cysts. POS: ABIODUN
--- NOTE | 2017-08-25 13:44 | PRG ---
DATE OF SERVICE: 08/25/2017 CHIEF COMPLAINT: Weakness in the left lower extremity. INTERVAL HISTORY: The patient reports her left lower extremity feels good and she is able to walk wi th help and she reports improvement in her left lower extremity weakness. LABORATORY DATA: No new laboratory reports or imaging reports for Neurology. PHYSICAL EXAMINATION: VITAL SIGNS: Blood pressure is 121/58, pulse is 92, temperature is 97.5, respiratory rate is 18 and O2 sats 95. NEUROLOGIC: Higher intellectual functions normal. Cranial nerves: Normal extraocular movements. N o facial asymmetry. Motor exam: Bulk normal, tone normal, strength 5/5 in both her upper and lower extremities. IMPRESSION: The patient with the right precentral gyrus infarct. At this time, she is stable and do ing well and her weakness has improved. PLAN: Continue present management for stroke prophylaxis and please call Neurology if you have any f urther questions. When medically stable, she can be discharged from neuro standpoint.
[2017-08-25] MEDS: Rosuvastatin 20 MG TAB PO SCH (20:33)
[2017-08-25] MEDS: Acetaminophen 325 MG TAB PO PRN (20:33)
[2017-08-25 20:43] LABS: ALT (SGPT) Less than 7 U/L (8-55); AST (SGOT) 7 U/L (5-34); Albumin 2.6 g/dL (3.4-4.8); Alkaline Phosphatase 49 U/L (40-150); Anion Gap 13 mmol/L (10-20); BUN (Urea Nitrogen) 9 mg/dL (9.8-20.1); Bilirubin, Total 0.2 mg/dL (0.2-1.2); Calc. Creatinine Clearance 29 mL/min (70-130); Calcium 7.8 mg/dL (7.8-10.44); Carbon Dioxide 19 mmol/L (23-31); Chloride 106 mmol/L (98-107); Estimated GFR-MDRD 55; Globulin 3.4 g/dL (2.4-3.5); Glucose 238 mg/dL (83-110); Potassium 3.8 mmol/L (3.5-5.1); Sodium 134 mmol/L (136-145)
[2017-08-26] MEDS: metroNIDAZOLE 500 MG in Premix Bag 1 BAG IVPB SCH ×2 (00:08→08:55)
[2017-08-26] MEDS: Sodium Chloride 0.9% 1,000 ML IV SCH ×2 (03:05→05:40)
[2017-08-26] MEDS: Thyroid 30 MG TAB PO SCH (08:54)
[2017-08-26] MEDS: Ubidecarenone 50 MG CAP PO SCH (08:54)
[2017-08-26] MEDS: Diphenoxylate HCl/Atropine Tablet PO SCH (08:54)
[2017-08-26] MEDS: Aspirin 81 mg Enteric Coated Tablet PO SCH (08:54)
[2017-08-26] MEDS: Enoxaparin Sodium 40 MG/0.4 ML SYRINGE SC SCH (08:55)
--- NOTE | 2017-08-26 11:39 | PDOC.PN ---
- Subjective Encounter Start Date: 08/26/17 Encounter Start Time: 09:00 Subjective: diarrhea is better, is amb with PT -: No new complaints -: daughter in room - Objective Resuscitation Status: Resuscitation Status DNR:Do Not Resuscitate MAR Reviewed: Yes Vital Signs & Weight: Vital Signs (12 hours) Temp Pulse Resp BP Pulse Ox 08/26/17 08:00 98.3 F 71 16 95 08/26/17 07:48 98.3 F 71 16 105/53 L 95 08/26/17 04:25 98.3 F 70 16 104/61 97 08/26/17 00:19 98.5 F 72 16 110/59 L 96 Weight Admit Weight 103 lb 1.6 oz Weight 103 lb 3.2 oz I&O: 08/25/17 08/26/17 08/27/17 06:59 06:59 06:59 Intake Total 2920 2368 240 Output Total 950 1150 Balance 1970 1218 240 Result Diagrams: 08/23/17 04:49 08/25/17 19:56 Phys Exam - Physical Examination HEENT: PERRLA, moist MMs Neck: no JVD, supple Respiratory: no wheezing, no rales Cardiovascular: RRR, no significant murmur Gastrointestinal: soft, non-tender, positive bowel sounds Musculoskeletal: no edema, pulses present Neurological: non-focal, moves all 4 limbs Psychiatric: A&O x 3 Dx/Plan (1) Acute CVA (cerebrovascular accident) Code(s): I63.9 - CEREBRAL INFARCTION, UNSPECIFIED Status: Acute Comment: with left sided weakness (2) HTN (hypertension) Code(s): I10 - ESSENTIAL (PRIMARY) HYPERTENSION Status: Chronic Qualifiers: Hypertension type: essential hypertension Qualified Code(s): I10 - Essential (primary) hypertension (3) Anemia Code(s): D64.9 - ANEMIA, UNSPECIFIED Status: Chronic Qualifiers: Anemia type: unspecified type Qualified Code(s): D64.9 - Anemia, unspecified (4) Chronic diarrhea Code(s): K52.9 - NONINFECTIVE GASTROENTERITIS AND COLITIS, UNSPECIFIED Status : Chronic (5) Dyslipidemia Code(s): E78.5 - HYPERLIPIDEMIA, UNSPECIFIED Status: Chronic (6) Hypothyroidism Code(s): E03.9 - HYPOTHYROIDISM, UNSPECIFIED Status: Chronic Qualifiers: Hypothyroidism type: unspecified Qualified Code(s): E03.9 - Hypothyroidism , unspecified - Plan left sided parasthesias have mostly resolved, is amb with PT -: outpt w/u for chronic diarrhea with -: hemo/neuro stable -: is on cipro, flagyl, continue for 5 more days and dc, stool studies are -ve -: dc plan to rehab if accepted/home with HH and PT. D/w family at bedside * . Review of Systems - Medications/Allergies Allergies/Adverse Reactions: Allergies Allergy/AdvReac Type Severity Reaction Status Date / Time iodine Allergy Intermediate Verified 08/20/17 15:51 shellfish derived Allergy Intermediate Verified 08/20/17 15:51 simvastatin Allergy Mild Verified 08/20/17 15:51 sulfamethoxazole Allergy Mild Verified 08/20/17 15:51 [From Bactrim] trimethoprim [From Bactrim] Allergy Mild Verified 08/20/17 15:51 Medications: Current Medications Acetaminophen (Tylenol) 650 mg PO Q4H PRN PRN Reason: Headache/Fever or Pain Last Admin: 08/25/17 20:33 Dose: 650 mg Aspirin (Ecotrin) 81 mg PO DAILY [facility] Last Admin: 08/26/17 08:54 Dose: 81 mg Coenzyme Q10 (Coenzyme Q10) 100 mg PO DAILY [facility] Last Admin: 08/26/17 08:54 Dose: 100 mg Diltiazem HCl (Cardizem Cd) 180 mg PO DAILY [facility] Last Admin: 08/26/17 08:53 Dose: 180 mg Diphenoxylate HCl/Atropine (Lomotil) 1 tab PO DAILY [facility] Last Admin: 08/26/17 08:54 Dose: 1 tab Duloxetine HCl (Cymbalta) 20 mg PO HS [facility] Last Admin: 08/25/17 20:32 Dose: 20 mg Enoxaparin Sodium (Lovenox) 40 mg SC 0900 [facility] Last Admin: 08/26/17 08:55 Dose: 40 mg Guaifenesin/Dextromethorphan (Robitussin Dm) 15 ml PO Q4H PRN PRN Reason: Cough Sodium Chloride (Normal Saline 0.9%) 1,000 mls @ 60 mls/hr IV .[id number] [facility] Last Admin: 08/26/17 05:40 Dose: 1,000 mls Ciprofloxacin/Dextrose 400 mg/ (Device) 200 mls @ 200 mls/hr IVPB 1200,2359 [facility] Last Admin: 08/26/17 00:08 Dose: 200 mls Metronidazole 500 mg/ Device 100 mls @ 100 mls/hr IVPB 0100,0900,1700 [facility] Last Admin: 08/26/17 08:55 Dose: 100 mls Pantoprazole Sodium (Protonix) 40 mg PO DAILY [facility] Last Admin: 08/26/17 08:54 Dose: 40 mg Rosuvastatin Calcium (Crestor) 20 mg PO HS [facility] Last Admin: 08/25/17 20:33 Dose: 20 mg Thyroid ([place] Thyroid) 15 mg PO DAILY [facility] Last Admin: 08/26/17 08:54 Dose: 15 mg
[2017-08-26] MEDS: Rosuvastatin 20 MG TAB PO SCH (21:30)
[2017-08-26] MEDS: metroNIDAZOLE 500 MG TAB PO SCH (21:30)
[2017-08-26] MEDS: Ciprofloxacin 500 MG TAB PO SCH (21:30)
[2017-08-27] MEDS: Ciprofloxacin 500 MG TAB PO SCH ×2 (05:19→21:38)
[2017-08-27] MEDS: Aspirin 81 mg Enteric Coated Tablet PO SCH (09:08)
[2017-08-27] MEDS: metroNIDAZOLE 500 MG TAB PO SCH ×3 (09:08→23:30)
[2017-08-27] MEDS: Diphenoxylate HCl/Atropine Tablet PO SCH (09:08)
[2017-08-27] MEDS: Ubidecarenone 50 MG CAP PO SCH (09:08)
[2017-08-27] MEDS: Enoxaparin Sodium 40 MG/0.4 ML SYRINGE SC SCH (09:08)
[2017-08-27] MEDS: Thyroid 30 MG TAB PO SCH (10:11)
[2017-08-27] MEDS ORDERED: Enoxaparin Sodium 60 MG/0.6 ML SYRINGE SC SCH ×2 (13:45→23:59)
--- NOTE | 2017-08-27 14:57 | PDOC.PN ---
- Subjective Encounter Start Date: 08/27/17 Encounter Start Time: 14:00 patient is seen today, alert and oriented. No other concenr snoted. She is waiting for Rehab, she is noted to have new onset/paroxyxmal Afib rhythm noted. - Objective Resuscitation Status: Resuscitation Status DNR:Do Not Resuscitate MAR Reviewed: Yes Vital Signs & Weight: Vital Signs (12 hours) Temp Pulse Resp BP BP Pulse Ox 08/27/17 11:22 99.1 F 96 16 131/69 95 08/27/17 08:00 98.5 F 86 18 08/27/17 07:48 98.5 F 86 18 140/65 96 08/27/17 04:00 98.6 F 104 H 16 128/61 93 L Weight Admit Weight 103 lb 1.6 oz Weight 114 lb 12.8 oz I&O: 08/26/17 08/27/17 08/28/17 06:59 06:59 06:59 Intake Total 2368 1660 Output Total 1150 350 Balance 1218 1310 Result Diagrams: 08/23/17 04:49 08/25/17 19:56 Phys Exam - Physical Examination HEENT: PERRLA, moist MMs Neck: no nodes, no JVD Respiratory: no wheezing, no rales Cardiovascular: no significant murmur, no rub, irregular Gastrointestinal: soft, non-tender Musculoskeletal: no edema, pulses present Neurological: non-focal, normal sensation Lymphatic: no nodes Dx/Plan (1) Paroxysmal atrial fibrillation Code(s): I48.0 - PAROXYSMAL ATRIAL FIBRILLATION Status: Acute Comment: Will srt on Lovenox 1mg/kg BID , she is high risk for recurrent stroke due to paroxysmal afib, will need to discuss with neurology about anticoagulation with eleiquis at discharge. (2) Acute CVA (cerebrovascular accident) Code(s): I63.9 - CEREBRAL INFARCTION, UNSPECIFIED Status: Acute Comment: with left sided weakness, on Asprpoin., Atorvastatin, neurology following, Rehab needed. (3) Anemia Code(s): D64.9 - ANEMIA, UNSPECIFIED Status: Chronic Qualifiers: Anemia type: unspecified type Qualified Code(s): D64.9 - Anemia, unspecified Comment: stable hb. (4) Chronic diarrhea Code(s): K52.9 - NONINFECTIVE GASTROENTERITIS AND COLITIS, UNSPECIFIED Status : Chronic Comment: improving. Hydration improved, Stool cultures neg. (5) Dyslipidemia Code(s): E78.5 - HYPERLIPIDEMIA, UNSPECIFIED Status: Chronic (6) HTN (hypertension) Code(s): I10 - ESSENTIAL (PRIMARY) HYPERTENSION Status: Chronic Qualifiers: Hypertension type: essential hypertension Qualified Code(s): I10 - Essential (primary) hypertension Comment: well controlled at goal. 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 - Discharge Day Encounter end time: 14:35 Review of Systems - Review of Systems Constitutional: weakness. negative: fever, chills, sweats, other ENT: negative: Ear Pain, Ear Discharge, Nose Pain, Nose Discharge, Nose Congestion, Mouth Pain, Mouth Swelling, Throat Pain, Throat Swelling, Other Respiratory: negative: Cough, Dry, Shortness of Breath, Hemoptysis, SOB with Excertion, Pleuritic Pain, Sputum, Wheezing Cardiovascular: negative: chest pain, palpitations, orthopnea, paroxysmal nocturnal dyspnea, edema, light headedness, other Gastrointestinal: negative: Nausea, Vomiting, Abdominal Pain, Diarrhea, Constipation, Melena, Hematochezia, Other Musculoskeletal: negative: Neck Pain, Shoulder Pain, Arm Pain, Back Pain, Hand Pain, Leg Pain, Foot Pain, Other Neurological: Weakness, Incoordination. negative: Numbness, Change in Speech, Confusion, Seizures, Other - Medications/Allergies Allergies/Adverse Reactions: Allergies Allergy/AdvReac Type Severity Reaction Status Date / Time iodine Allergy Intermediate Verified 08/20/17 15:51 shellfish derived Allergy Intermediate Verified 08/20/17 15:51 simvastatin Allergy Mild Verified 08/20/17 15:51 sulfamethoxazole Allergy Mild Verified 08/20/17 15:51 [From Bactrim] trimethoprim [From Bactrim] Allergy Mild Verified 08/20/17 15:51 Medications: Current Medications Acetaminophen (Tylenol) 650 mg PO Q4H PRN PRN Reason: Headache/Fever or Pain Last Admin: 08/25/17 20:33 Dose: 650 mg Aspirin (Ecotrin) 81 mg PO DAILY [facility] Last Admin: 08/27/17 09:08 Dose: 81 mg Ciprofloxacin (Cipro) 500 mg PO 0600,1999 [facility] Last Admin: 08/27/17 05:19 Dose: 500 mg Coenzyme Q10 (Coenzyme Q10) 100 mg PO DAILY [facility] Last Admin: 08/27/17 09:08 Dose: 100 mg Diltiazem HCl (Cardizem Cd) 180 mg PO DAILY [facility] Last Admin: 08/27/17 09:08 Dose: 180 mg Diphenoxylate HCl/Atropine (Lomotil) 1 tab PO DAILY [facility] Last Admin: 08/27/17 09:08 Dose: 1 tab Duloxetine HCl (Cymbalta) 20 mg PO HS [facility] Last Admin: 08/26/17 21:30 Dose: 20 mg Enoxaparin Sodium (Lovenox) 50 mg SC NOW [facility] Stop: 08/27/17 17:45 Last Admin: 08/27/17 14:27 Dose: 50 mg Enoxaparin Sodium (Lovenox) 50 mg SC 09,2099 [facility] Enoxaparin Sodium (Lovenox) 50 mg SC 2358 [facility] Stop: 08/28/17 02:00 Guaifenesin/Dextromethorphan (Robitussin Dm) 15 ml PO Q4H PRN PRN Reason: Cough Metronidazole (Flagyl) 500 mg PO TID [facility] Last Admin: 08/27/17 14:28 Dose: 500 mg Pantoprazole Sodium (Protonix) 40 mg PO DAILY [facility] Last Admin: 08/27/17 09:08 Dose: 40 mg Rosuvastatin Calcium (Crestor) 20 mg PO HS [facility] Last Admin: 08/26/17 21:30 Dose: 20 mg Thyroid ([place] Thyroid) 15 mg PO DAILY [facility] Last Admin: 08/27/17 10:11 Dose: 15 mg
[2017-08-27] MEDS: Rosuvastatin 20 MG TAB PO SCH (21:38)
[2017-08-27] MEDS ORDERED: metroNIDAZOLE 500 MG TAB PO SCH (21:45)
[2017-08-28 02:22] LABS: Hemoglobin 8.5 g/dL (12.0-16.0)
[2017-08-28] MEDS: Ciprofloxacin 500 MG TAB PO SCH ×2 (04:57→21:27)
[2017-08-28 06:13] LABS: Hemoglobin 8.6 g/dL (12.0-16.0)
[2017-08-28] MEDS ORDERED: Enoxaparin Sodium 60 MG/0.6 ML SYRINGE SC SCH (09:00)
[2017-08-28 10:06] VITALS: BMI 18.3
[2017-08-28] MEDS: Thyroid 30 MG TAB PO SCH (10:56)
[2017-08-28] MEDS: Aspirin 81 mg Enteric Coated Tablet PO SCH (10:57)
[2017-08-28] MEDS: Diphenoxylate HCl/Atropine Tablet PO SCH (10:58)
[2017-08-28] MEDS: metroNIDAZOLE 500 MG TAB PO SCH ×3 (13:21→21:28)
[2017-08-28] MEDS: Ubidecarenone 50 MG CAP PO SCH (13:22)
--- NOTE | 2017-08-28 16:03 | PDOC.PN ---
- Subjective Encounter Start Date: 08/28/17 Encounter Start Time: 15:00 Patient is seen today, alert and oriented, Pt had Bleeding last night in her stool, was significant bleeding according to her, she is started on Lovenox 1mg/ kg SC BID for Stroke and Afib new onset. - Objective Resuscitation Status: Resuscitation Status DNR:Do Not Resuscitate MAR Reviewed: Yes Vital Signs & Weight: Vital Signs (12 hours) Temp Pulse Resp BP Pulse Ox 08/28/17 11:46 98.1 F 92 110/56 L 96 08/28/17 08:00 98.1 F 92 16 116/58 L 95 Weight Admit Weight 103 lb 1.6 oz Weight 110 lb 1.6 oz I&O: 08/27/17 08/28/17 08/29/17 06:59 06:59 06:59 Intake Total 1660 30 Output Total 350 Balance 1310 30 Result Diagrams: 08/28/17 12:04 08/25/17 19:56 Radiology Reviewed by me: Yes Phys Exam - Physical Examination HEENT: PERRLA, moist MMs Neck: no nodes, no JVD Respiratory: no wheezing, no rales Cardiovascular: RRR, no significant murmur Gastrointestinal: soft, non-tender Musculoskeletal: no edema, pulses present Neurological: non-focal, normal sensation Lymphatic: no nodes Psychiatric: normal affect, A&O x 3 Dx/Plan (1) Acute GI hemorrhage Code(s): K92.2 - GASTROINTESTINAL HEMORRHAGE, UNSPECIFIED Status: Acute Comment: Will consult GI to r/o other causes of GI bleed, pt has h/o AV malformations, Pt also has severe hemorroids according to her, Will consult Surgery if this can be taken care of during this admission so a decision can be made to try anticoagulation. (2) Paroxysmal atrial fibrillation Code(s): I48.0 - PAROXYSMAL ATRIAL FIBRILLATION Status: Acute Comment: Will hold Lovenox 1mg/kg BID , as she has GI bleed now and she attributes to severe hemorroids. (3) Acute CVA (cerebrovascular accident) Code(s): I63.9 - CEREBRAL INFARCTION, UNSPECIFIED Status: Acute Comment: with left sided weakness, on Asprpoin., Atorvastatin, neurology following, Rehab needed but pt is wanting to home with Pt/OT as she feels she is much better now. (4) Anemia Code(s): D64.9 - ANEMIA, UNSPECIFIED Status: Chronic Qualifiers: Anemia type: unspecified type Qualified Code(s): D64.9 - Anemia, unspecified Comment: stable hb. (5) Chronic diarrhea Code(s): K52.9 - NONINFECTIVE GASTROENTERITIS AND COLITIS, UNSPECIFIED Status : Chronic Comment: improving. Hydration improved, Stool cultures neg. (6) Dyslipidemia Code(s): E78.5 - HYPERLIPIDEMIA, UNSPECIFIED Status: Chronic (7) HTN (hypertension) Code(s): I10 - ESSENTIAL (PRIMARY) HYPERTENSION Status: Chronic Qualifiers: Hypertension type: essential hypertension Qualified Code(s): I10 - Essential (primary) hypertension Comment: well controlled at goal. (8) Hypothyroidism Code(s): E03.9 - HYPOTHYROIDISM, UNSPECIFIED Status: Chronic Qualifiers: Hypothyroidism type: unspecified Qualified Code(s): E03.9 - Hypothyroidism , unspecified - Plan * . - Discharge Day Encounter end time: 15:35 Review of Systems - Review of Systems Constitutional: negative: fever, chills, sweats, weakness, malaise, other Eyes: negative: Pain, Vision Change, Conjunctivae Inflammation, Eyelid Inflammation, Redness, Other ENT: negative: Ear Pain, Ear Discharge, Nose Pain, Nose Discharge, Nose Congestion, Mouth Pain, Mouth Swelling, Throat Pain, Throat Swelling, Other Respiratory: negative: Cough, Dry, Shortness of Breath, Hemoptysis, SOB with Excertion, Pleuritic Pain, Sputum, Wheezing Cardiovascular: negative: chest pain, palpitations, orthopnea, paroxysmal nocturnal dyspnea, edema, light headedness, other Gastrointestinal: Hematochezia. negative: Nausea, Vomiting, Abdominal Pain, Diarrhea, Constipation, Melena, Other Genitourinary: negative: Dysuria, Frequency, Incontinence, Hematuria, Retention , Other Musculoskeletal: negative: Neck Pain, Shoulder Pain, Arm Pain, Back Pain, Hand Pain, Leg Pain, Foot Pain, Other Skin: negative: Rash, Lesions, Carlo, Bruising, Other - Medications/Allergies Allergies/Adverse Reactions: Allergies Allergy/AdvReac Type Severity Reaction Status Date / Time iodine Allergy Intermediate Verified 08/20/17 15:51 shellfish derived Allergy Intermediate Verified 08/20/17 15:51 simvastatin Allergy Mild Verified 08/20/17 15:51 sulfamethoxazole Allergy Mild Verified 08/20/17 15:51 [From Bactrim] trimethoprim [From Bactrim] Allergy Mild Verified 08/20/17 15:51 Medications: Current Medications Acetaminophen (Tylenol) 650 mg PO Q4H PRN PRN Reason: Headache/Fever or Pain Last Admin: 08/25/17 20:33 Dose: 650 mg Aspirin (Ecotrin) 81 mg PO DAILY [facility] Last Admin: 08/28/17 10:57 Dose: 81 mg Ciprofloxacin (Cipro) 500 mg PO 599,1999 [facility] Last Admin: 08/28/17 04:57 Dose: 500 mg Coenzyme Q10 (Coenzyme Q10) 100 mg PO DAILY [facility] Last Admin: 08/28/17 13:22 Dose: 100 mg Diltiazem HCl (Cardizem Cd) 180 mg PO DAILY [facility] Last Admin: 08/28/17 10:56 Dose: 180 mg Diphenoxylate HCl/Atropine (Lomotil) 1 tab PO DAILY [facility] Last Admin: 08/28/17 10:58 Dose: 1 tab Duloxetine HCl (Cymbalta) 20 mg PO [facility] Last Admin: 08/27/17 21:38 Dose: 20 mg Guaifenesin/Dextromethorphan (Robitussin Dm) 15 ml PO Q4H PRN PRN Reason: Cough Metronidazole (Flagyl) 500 mg PO TID [facility] Last Admin: 08/28/17 16:01 Dose: 500 mg Pantoprazole Sodium (Protonix) 40 mg PO DAILY [facility] Last Admin: 08/28/17 10:57 Dose: 40 mg Rosuvastatin Calcium (Crestor) 20 mg PO HS [facility] Last Admin: 08/27/17 21:38 Dose: 20 mg Thyroid ([place] Thyroid) 15 mg PO DAILY [facility] Last Admin: 08/28/17 10:56 Dose: 15 mg
[2017-08-28 18:26] LABS: Hemoglobin 9.2 g/dL (12.0-16.0)
[2017-08-28] MEDS: Rosuvastatin 20 MG TAB PO SCH (21:28)
[2017-08-28 23:57] LABS: Hemoglobin 8.1 g/dL (12.0-16.0)
[2017-08-29] MEDS: Ciprofloxacin 500 MG TAB PO SCH (06:02)
--- NOTE | 2017-08-29 06:20 | CON ---
DATE OF CONSULTATION: 08/28/2017 REFERRING PHYSICIAN: Ady Mcdowell M.D., [facility] REASON FOR CONSULTATION: Hematochezia. HISTORY OF PRESENT ILLNESS: Jeanine Esquivel is a very pleasant 89-year-old fragile looking fe male hospitalized over a week ago with abdominal pain, chronic diarrhea, weight loss and also some we akness of the left lower extremity. She was found to have CVA and . The patient has had abdomi nal pain, periumbilical area and also diffuse over the last several weeks. The patient also has a hi story of diarrhea and weight loss. The patient had an EGD done by me a week ago, revealed no patholo gy except for mild gastritis. The patient was admitted because of the diarrhea, weakness in left leg and weight loss. She had stool studies that came back negative for any pathology. It was felt the patient could have as she underwent recently angiogram. Surprisingly the angiogram shows no is chemic bowel disease. The patient's diarrhea has markedly improved. She is actually feeling better. Her appetite is slowly improving, but she before. The patient had lost her in . Since that time, her overall clinical condition has worsened. Before her 's , she wa s fully functional, driving and doing everything. After her , she stopped eating and started having some vague abdominal pain and diarrhea, etc. The patient does take antidepressant , but the antidepressant does not seem to help her. The patient is awaiting placement in a skilled n ursing facility because of ischemia. The patient had mild hematochezia yesterday. The bleeding was very mild and mostly seen . Since that time, she had no bleeding. But she has mild bleeding, h er blood count has been really stable. Since admission, she has been anemic. The admitting hemoglob in is 8.8 and today went to 8.6, and the last one was 9 grams on 06/05/2017. The patient had a colon oscopy in 2012 and was found to have scattered diverticular disease of the left colon and transverse colon. She was also found to have moderate hemorrhoids. The patient has no abdominal pain. She had a good breakfast this morning and then after she feels full and bloated. She did not eat lunch. Sh e did take a can of Ensure. The patient appears clinically much better than what she was a couple of weeks ago. She also states she is feeling better. ALLERGIES: IODINE. She is also allergic to seafood. SOCIAL HISTORY: The patient is . She does not smoke or drink alcohol. MEDICAL ILLNESSES: 1. diarrhea. 2. Hypertension. 3. Hyperlipidemia. 4. Depression. 5. Diverticulosis. 6. Rheumatoid arthritis. 7. Chronic acid reflux. SURGERIES: Hysterectomy and cataract surgery. REVIEW OF SYSTEMS: Remarkable for abdominal pain, nausea, anorexia, weight loss and diarrhea. Christos g this admission, she has developed atrial fibrillation and is being seen by Cardiology. PHYSICAL EXAMINATION: GENERAL: The patient is thin built, appears very comfortable, in no distress. Compared with how she was two weeks ago, she appears clinically much better. VITAL SIGNS: Stable. Pulse is 100, blood pressure 110/70. NECK: Supple. CARDIOVASCULAR SYSTEM: First and second heart sounds normal. LUNGS: Clear to auscultation. ABDOMEN: Soft to palpate. No organomegaly. No tenderness. No masses. EXTREMITIES: Reveal no edema. CLINICAL IMPRESSION: Hematochezia, appears to be . The patient had a colonoscopy in 07/2012 an d was found to have severe sigmoid diverticular disease to transverse colon. She also had moderate h emorrhoids. Based on the history and there is no drop in blood count, it appears she has most likely hemorrhoidal bleeding. RECOMMENDATIONS: 1. Follow up H&H. 2. No reason for doing a colonoscopy as she had a colonoscopy in 2012. The bleeding if becomes pers istent, I would probably go do a tagged RBC scan. If the bleeding recurs and persists, I am going to consider a colonoscopy. For the time being, I am really not inclined to do a colonoscopy because of multiple .
[2017-08-29] MEDS: metroNIDAZOLE 500 MG TAB PO SCH ×2 (08:50→15:10)
[2017-08-29] MEDS: Thyroid 30 MG TAB PO SCH (08:50)
[2017-08-29] MEDS: Diphenoxylate HCl/Atropine Tablet PO SCH (08:50)
[2017-08-29] MEDS: Aspirin 81 mg Enteric Coated Tablet PO SCH (08:50)
[2017-08-29] MEDS: Ubidecarenone 50 MG CAP PO SCH (08:51)
[2017-08-29 15:51] VITALS: BP 102/51; TEMP 98.1
--- NOTE | 2017-08-29 16:25 | DIS ---
DATE OF ADMISSION: 08/22/2017 DATE OF DISCHARGE: 08/29/2017 ADMITTING DIAGNOSIS: Acute transient ischemic attack. 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 SECONDARY DIAGNOSES: 1. Acute atrial fibrillation. 2. Acute on chronic gastrointestinal bleed. 3. Hyperlipidemia. CONSULTANTS INVOLVED IN THIS CARE: Dr. Gonzalez from GI, Dr. Ernestina De Oliveira from Neurology. PROCEDURES DURING THIS ADMISSION: 1. Brain MRI showing evidence of acute infarction in the left precentral gyrus. 2. CT of the abdomen was negative for any inflammatory process or any mass. HISTORY OF PRESENT ILLNESS AND HOSPITAL COURSE IN BRIEF: This is an 89-year-old white female who pre sented to the hospital complaining of left leg feeling numb and she could not move her left lower ext remity without the help of her hands pulling it out. 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 This took more than 4 hours for her to come to the ER. The patient had a recent upper endoscopy which was unremarkable and was also hav ing a workup for her chronic diarrhea. The patient was a known patient of Dr. Gonzalez and she also has a history of hemorrhoids and they have been bleeding recently. The patient was admitted and was evaluated and worked up for the TIA and initially the CT brain was negative, but the MRI did show ev idence of acute infarction in the left precentral gyrus. The patient was closely monitored and was s tarted on aspirin as she was on 81 mg of aspirin. It was recommended by Neurology to increase to 325 mg p.o. daily and the patient was on rosuvastatin which was continued. It was noted that the patien t was having a rhythm changed to atrial fibrillation which is more of paroxysmal rhythm and she is al ready on Cardizem p.o. Her heart rate was well controlled and initially she was started on Lovenox 1 mg q.12 b.i.d., but it started to bleed more. The following day so her Lovenox was held and GI was consulted, who suggested that the patient does have a risk of bleeding, but it is not from upper carol rointestinal or any colonic bleed. It is more of a hemorrhoidal bleed. When discussed with the dave ent, she mentioned that she does have severe hemorrhoids and they do bleed occasionally, but as long as her stools are soft, does not bother hemorrhoids. So at this time, a decision was made after disc ussing with the family and that will hold off on the blood thinners at this time and will continue wi th high dose of aspirin. We will closely monitor and advise for continuing on the stool softeners fo r her hemorrhoids. The patient was evaluated by physical therapy and suggested rehab placement for [facility] as she continues to have gait problems. The patient was discharged to inpatient rehabilitation. PHYSICAL EXAMINATION: VITAL SIGNS: Blood pressure 124/59, heart rate is 98, respirations 20, saturation 96% on room air. GENERAL: The patient is moderately nourished, does not appear to be in acute distress. CARDIOVASCULAR: S1 and S2 normal. No murmurs, rubs, or gallops. LUNGS: Bilateral air entry was equal. No wheezing, no crackles. ABDOMEN: Soft, nontender. No guarding or rebound tenderness. Bowel sounds are normal. MUSCULOSKELETAL: No calf tenderness. No pedal edema. No joint tenderness, no joint swelling. SKIN: No cyanosis, no erythema, no rash, no pallor. NURSING FACULTY: Cranial nerve examination II-XII intact. No focal deficits were noted. DISCHARGE MEDICATIONS: 1. Acetaminophen. 2. Aspirin 325 mg p.o. daily. 3. Ciprofloxacin 500 mg p.o. daily will be continued for 4 more days. 4. Diltiazem 180 mg p.o. daily. 5. Duloxetine 20 mg p.o. daily. 6. Metronidazole 500 mg p.o. b.i.d., continue for 4 more days. 7. Pantoprazole 40 mg daily. 8. Rosuvastatin 20 mg daily. 9. Thyroid pork 1 tablet p.o. daily 15 mg. 10. MiraLax 17 grams p.o. daily. DISCHARGE INSTRUCTIONS: 1. Continue activity as tolerated. Advised to follow up with primary care physician in 1-2 weeks. Advised to follow up with Neurology in 2 weeks and decide on anticoagulant once her bleeding problem has been resolved with a stool softener. 2. If the patient continues to bleed, she can follow up with General Surgery as outpatient. Refer t o primary physician for her hemorrhoids. 3. Continue activity as tolerated at the inpatient rehabilitation. 4. Continue with the cardiac diet. I spent 35 minutes with this patient on the day of discharge.
--- NOTE | 2017-09-14 19:28 | EKG ---
Test Reason : WEAK Blood Pressure : / mmHG Vent. Rate : 088 BPM Atrial Rate : 088 BPM P-R Int : 196 ms QRS Dur : 074 ms QT Int : 412 ms P-R-T Axes : 085 055 084 degrees QTc Int : 498 ms Normal sinus rhythm Prolonged QT Abnormal ECG Confirmed by WESLEY KIM ([id number]), newspaper managing editor DIMITRIOS WANG ([id number] on 09/14/2017 7:28:17 PM Referred By: Confirmed By:WESLEY KIM
== END 2017-08-29 19:49 | DRG 65 ==
LOC: ERS 10:45 → 2SE 12:52
PROVIDERS: ADMIT Internal Medicine; ATTEND Internal Medicine
DX: I63.8 Other cerebral infarction (principal); G81.94 Hemiplegia, unspecified affecting left nondominant side; D64.9 Anemia, unspecified; E86.0 Dehydration; I48.0 Paroxysmal atrial fibrillation; E78.5 Hyperlipidemia, unspecified; E03.9 Hypothyroidism, unspecified; E87.6 Hypokalemia; K92.1 Melena; F32.9 Major depressive disorder, single episode, unspecified; I10 Essential (primary) hypertension; K57.90 Diverticulosis of intestine, part unspecified, without perforation or abscess without bleeding; Z88.2 Allergy status to sulfonamides; Z88.1 Allergy status to other antibiotic agents; Z91.041 Radiographic dye allergy status; K52.9 Noninfective gastroenteritis and colitis, unspecified; Z66 Do not resuscitate; M06.9 Rheumatoid arthritis, unspecified; K21.9 Gastro-esophageal reflux disease without esophagitis; K64.9 Unspecified hemorrhoids; K44.9 Diaphragmatic hernia without obstruction or gangrene; F41.9 Anxiety disorder, unspecified
CPT/HCPCS: 36415; 70450; 70551; 74174; 80048; 80053; 80061; 82274; 82553; 83735; 84484; 85014; 85018; 85025; 87045; 87046; 87324; 87449; 87899; 93005; 93306; 93880; 96360; 96361; G8978-GP-CK; G8979-GP-CI; G8987-GO-CJ; G8988-GO-CI; G8996-GN-CH; G8997-GN-CH; J0744; J1650; J2001; J2704